=== PATIENT | female | born 1970 | race Caucasian/White ===

== ENCOUNTER 2017-04-21 18:55 | Emergency (ER) | payer BC ==
[2017-04-21 19:13] VITALS: BP 163/72
--- NOTE | 2017-04-21 20:10 | EDM.PDOC ---
ED HPI GENERAL MEDICAL PROBLEM - General Chief Complaint: Headache Stated Complaint: MIGRAINE Time Seen by Provider: 04/21/17 19:45 Source of Information: Reports: Patient History Limitations: Reports: No Limitations - History of Present Illness INITIAL COMMENTS - FREE TEXT/NARRATIVE: c/o headache last 2 nights with intercourse relieved with ibuprofen. No headache at present. Described headache to start in back of neck and radiate to top of head. Admits anxiety about health. Was seen in [facility] last denisse for same and given Ativan for anxiety and Rx for Lexapro. Has not started. Wanting CT of head. Has no weakness or blurring of vision. BP up last night. Duration: Resolved Prior to Arrival - Related Data Allergies Allergy/AdvReac Type Severity Reaction Status Date / Time codeine Allergy Hallucinati Verified 04/21/17 19:07 ons Home Meds: Home Meds . [No Known Home Meds] 04/21/17 [History] Past Medical History - Past Health History Medical/Surgical History: Denies Medical/Surgical History Psychiatric History: Reports: Anxiety - Past Surgical History Musculoskeletal Surgical History: Reports: Other (See Below) Other Musculoskeletal Surgeries/Procedures:: right ankle surgery Social & Family History - Family History Family Medical History: Noncontributory - Tobacco Use Smoking Status *Q: Never Smoker Second Hand Smoke Exposure: No - Caffeine Use Caffeine Use: Reports: Coffee - Recreational Drug Use Recreational Drug Use: No ED ROS GENERAL - Review of Systems Review Of Systems: See Below Constitutional: Reports: No Symptoms HEENT: Reports: No Symptoms Respiratory: Reports: No Symptoms Cardiovascular: Reports: No Symptoms GI/Abdominal: Reports: No Symptoms : Reports: No Symptoms Musculoskeletal: Reports: No Symptoms Neurological: Reports: Headache (starts at back adiates to top. ). Denies: Seizure, Syncope, Tingling - Physical Exam Exam: See Below Exam Limited By: No Limitations General Appearance: Alert, No Apparent Distress, Anxious Eye Exam: Bilateral Eye: EOMI, PERRL Ears: Normal External Exam, Normal TMs Nose: Normal Inspection, Clear Rhinorrhea Throat/Mouth: Normal Inspection Head Exam: Atraumatic, Normocephalic. No: Scalp Swelling Neck: Normal Inspection, Full Range of Motion. No: Lymphadenopathy (L), Lymphadenopathy (R) Respiratory/Chest: No Respiratory Distress, Lungs Clear Cardiovascular: Normal Peripheral Pulses, Regular Rate, Rhythm GI/Abdominal: Normal Bowel Sounds, Soft, Non-Tender Neuro Exam (Abbreviated): Alert, Oriented, CN II-XII Intact, Normal Cognition, No Motor/Sensory Deficits Back Exam: Normal Inspection Extremities: Normal Inspection, Normal Range of Motion, No Pedal Edema Psychiatric: Normal Affect Skin Exam: Warm, Dry, Intact, Normal Color, No Rash Course - Vital Signs Last Recorded V/S: Last Vital Signs Temp 98.4 F 04/21/17 19:08 Pulse 62 04/21/17 19:08 Resp 16 04/21/17 19:08 BP 163/72 H 04/21/17 19:08 Pulse Ox 100 04/21/17 19:08 Departure - Departure Time of Disposition: 20:03 Disposition: Home, Self-Care 01 Condition: Good Clinical Impression: Tension headache, Anxiety about health - Discharge Information Instructions: Tension Headache, [id number] Forms: ED Department Discharge Additional Instructions: alternate tylenol and ibuprofen for headache increase fluid intake follow up in clinic next week with primary care provider
== END 2017-04-21 20:06 | disposition home or self-care (01) ==
LOC: DL.ED 18:55
DX: G44.209 Tension-type headache, unspecified, not intractable (principal); F41.9 Anxiety disorder, unspecified
CPT/HCPCS: 99283

== ENCOUNTER 2017-04-28 19:57 | Emergency (ER) | payer BC ==
[2017-04-28 20:30] VITALS: BP 167/83
--- NOTE | 2017-04-28 21:42 | EDM.PDOC ---
ED HPI GENERAL MEDICAL PROBLEM - General Chief Complaint: Headache Stated Complaint: HAD CT SCAN DONE W/OUT CONTRAST,NEEDS 1 WITH Time Seen by Provider: 04/28/17 21:36 Source of Information: Reports: Patient History Limitations: Reports: No Limitations - History of Present Illness INITIAL COMMENTS - FREE TEXT/NARRATIVE: pt states has h/o FITCH and had non-contrast head CAT today which was negative but pt is concerned with possible bleeding in her head and called her MD in [place] who rec' contrast study. explained to pt this facility doesn't do head contrast without radiologist present and there isn't one on nights and weekend. but I will call [facility] which can do contrast head CAT. then pt states will go there tomorrow after work to have scan done and wanted me to call ahead for the appointment. explained to pt if her concern is a head bleed then she should go tonight. pt got quite unhappy stating she is not used to [facility] lack of services unlike [place] where she is from. pt then got up and left without further eval' Left Headache Pain Score (Numeric/FACES): 4 - Related Data Allergies Allergy/AdvReac Type Severity Reaction Status Date / Time codeine Allergy Hallucinati Verified 04/28/17 20:30 ons Home Meds: Home Meds ALPRAZolam [Alprazolam] 0.5 mg PO DAILY 04/28/17 [History] Escitalopram Oxalate [Escitalopram Oxalate] 10 mg PO DAILY 04/28/17 [History] Orphenadrine [Norflex] 100 mg PO BID PRN 04/28/17 [History] Past Medical History - Past Health History Medical/Surgical History: Denies Medical/Surgical History Psychiatric History: Reports: Anxiety - Infectious Disease History Infectious Disease History: Reports: Chicken Pox - Past Surgical History Musculoskeletal Surgical History: Reports: Other (See Below) Other Musculoskeletal Surgeries/Procedures:: right ankle surgery Social & Family History - Family History Family Medical History: Noncontributory - Tobacco Use Smoking Status *Q: Never Smoker Second Hand Smoke Exposure: No - Caffeine Use Caffeine Use: Reports: Coffee - Recreational Drug Use Recreational Drug Use: No ED ROS GENERAL - Review of Systems Review Of Systems: ROS reveals no pertinent complaints other than HPI. - Physical Exam Exam: See Below Exam Limited By: No Limitations General Appearance: Alert, WD/WN, No Apparent Distress, Other (somewhat distraught) Eye Exam: Bilateral Eye: PERRL (pupils ess ER @ 4mm) Ears: Hearing Grossly Normal Throat/Mouth: Normal Voice, No Airway Compromise Head Exam: Atraumatic Neck: Non-Tender, Full Range of Motion Respiratory/Chest: No Respiratory Distress Cardiovascular: Normal Peripheral Pulses Neuro Exam (Abbreviated): Alert, Oriented, Normal Cognition, Normal Gait, No Motor/Sensory Deficits Psychiatric: Other (distraught) Skin Exam: Normal Color Course - Vital Signs Last Recorded V/S: Last Vital Signs Temp 37.7 C 04/28/17 20:25 Pulse 68 04/28/17 20:25 Resp 18 04/28/17 20:25 BP 167/83 H 04/28/17 20:25 Pulse Ox 97 04/28/17 20:25 Departure - Departure Time of Disposition: 21:44 Disposition: Home, Self-Care 01 Condition: Good Clinical Impression: Headache Qualifiers: Headache type: unspecified Headache chronicity pattern: unspecified pattern Intractability: not intractable Qualified Code(s): R51 - Headache - Discharge Information Forms: ED Department Discharge
== END 2017-04-28 21:35 | disposition home or self-care (01) ==
LOC: DL.ED 19:57
DX: G44.82 Headache associated with sexual activity (principal); Z88.5 Allergy status to narcotic agent; Z79.899 Other long term (current) drug therapy
CPT/HCPCS: 36415; 70450; 80053; 83540; 83550; 85025; 99283

== ENCOUNTER 2021-07-22 05:48 | Emergency (ER) | payer BC ==
[2021-07-22 06:08] VITALS: BP 155/108; PULSE 84
--- NOTE | 2021-07-22 06:53 | EDM.PDOC ---
<Sukhjinder Dawkins - Last Filed: 07/22/21 08:18> ED HPI GENERAL MEDICAL PROBLEM - General Chief Complaint: Gastrointestinal Problem Stated Complaint: PT DID NOT WANT TO SAY Time Seen by Provider: 07/22/21 06:20 - Related Data Allergies Allergy/AdvReac Type Severity Reaction Status Date / Time codeine Allergy Hallucinati Verified 04/28/17 20:30 ons Home Meds: Home Meds ALPRAZolam [Alprazolam] 0.5 mg PO DAILY 04/28/17 [History] Escitalopram Oxalate 10 mg PO DAILY 04/28/17 [History] Orphenadrine [Norflex] 100 mg PO BID PRN 04/28/17 [History] Course - Re-Assessments/Exams Free Text/Narrative Re-Assessment/Exam: 07/22/21 07:31 I assumed care of the pt from Arabella Shipley [employer] SHELLER OPERATOR at 0700HR shift change with lab results pending. Pt is resting and comfortable. No changes to HPI/CC, Hx, ROS, or exam as documented by the CORN SHELLER OPERATOR for this encounter. Departure - Departure Time of Disposition: 08:18 Disposition: Home, Self-Care 01 Condition: Good Clinical Impression: Acute anal fissure, Rectal bleeding, Chronic constipation - Discharge Information *PRESCRIPTION DRUG MONITORING PROGRAM REVIEWED*: No *COPY OF PRESCRIPTION DRUG MONITORING REPORT IN PATIENT RELL: No Instructions: Rectal Bleeding, Chronic Constipation, Anal Fissure, Adult Forms: ED Department Discharge Additional Instructions: Use Citrucel once or twice daily. Follow directions on container. Use Dibucaine or Nupercainal as needed for anal pain. Drink plenty of water. High fiber diet with plenty fresh fruits and vegetables. Follow up in clinic next week for recheck and consideration of colonoscopy. <Arabella Shipley Roslainda - Last Filed: 07/23/21 01:04> ED HPI GENERAL MEDICAL PROBLEM - General Source of Information: Reports: Patient, RN, RN Notes Reviewed History Limitations: Reports: No Limitations - History of Present Illness INITIAL COMMENTS - FREE TEXT/NARRATIVE: Dary is a 51 y/o female who presents to the ED via personal vehicle with complaints of rectal bleeding, diarrhea, and abdominal cramping. The patient reports her symptoms began yesterday following a 3-day long bout of constipation. She notes stinging pain to the rectum with bowel movements since her first post-constipation stool. She did not notice blood to the stool until she had experienced several bowel movements yesterday. Additionally, the patient notes a cough, sore throat, chills, and muscle aches that started one week ago. The patient reports a history of an active COVID infection in 2020; she is not currently vaccinated for COVID. She denies fever, vision changes, sinus pressure/pain, chest pain/pain, palpitations, shortness of breath, nausea, vomiting, dysuria, or hematuria. The patient attest to a history of constipation with anal fissures. She denies tobacco, alcohol, or recreational drug use. Middle Abdomen Pain Score (Numeric/FACES): 6 Past Medical History - Past Health History Medical/Surgical History: Denies Medical/Surgical History Psychiatric History: Reports: Anxiety - Infectious Disease History Infectious Disease History: Reports: Chicken Pox - Past Surgical History Musculoskeletal Surgical History: Reports: Other (See Below) Other Musculoskeletal Surgeries/Procedures:: right ankle surgery Social & Family History - Family History Family Medical History: No Pertinent Family History - Tobacco Use Tobacco Use Status *Q: Never Tobacco User Second Hand Smoke Exposure: No - Caffeine Use Caffeine Use: Reports: Coffee ED ROS GENERAL - Review of Systems Review Of Systems: Comprehensive ROS is negative, except as noted in HPI. ED EXAM, GI/ABD - Physical Exam Exam: See Below Exam Limited By: No Limitations General Appearance: Alert, WD/WN, No Apparent Distress. No: Active Emesis Eyes: Bilateral: Normal Appearance, EOMI Ears: Normal External Exam, Hearing Grossly Normal Nose: Normal Inspection, Normal Mucosa, No Blood Throat/Mouth: Normal Inspection, Normal Oropharynx, Normal Voice, No Airway Compromise Head: Atraumatic, Normocephalic Neck: Normal Inspection, Supple, Non-Tender, Full Range of Motion. No: Lymphadenopathy (L), Lymphadenopathy (R) Respiratory/Chest: No Respiratory Distress, Lungs Clear, Normal Breath Sounds, No Accessory Muscle Use, Chest Non-Tender. No: Crackles, Rales, Rhonchi, Wheezing, Stridor Cardiovascular: Normal Peripheral Pulses, Regular Rate, Rhythm, No Gallop, No Murmur, No Rub GI/Abdominal Exam: Normal Bowel Sounds, Soft, No Distention, No Abnormal Bruit, No Mass, Pelvis Stable, Tender (To palpation of bilateral lower quadrants R>L) (Female) Exam: Deferred Rectal (Female) Exam: Normal Rectal Tone, Bloody Stool, Rectal Fissure (to 12 o'clock ), Tenderness Back Exam: Normal Inspection, Full Range of Motion Extremities: Normal Inspection, Normal Range of Motion, Normal Capillary Refill Neurological: Alert, Oriented, CN II-XII Intact, Normal Cognition, Normal Gait, No Motor/Sensory Deficits Psychiatric: Normal Affect, Normal Mood Skin Exam: Warm, Dry, Intact, Normal Color, No Rash. No: Cyanosis, Jaundice, Mottled, Pallor Course - Vital Signs Last Recorded V/S: Last Vital Signs Temp 97.3 F 07/22/21 06:05 Pulse 84 07/22/21 06:05 Resp 18 07/22/21 06:05 BP 155/108 H 07/22/21 06:05 Pulse Ox 97 07/22/21 06:05 - Orders/Labs/Meds Labs: Laboratory Tests 07/22/21 07/22/21 07/22/21 Range/Units 06:11 06:45 07:11 WBC 7.4 (5.0-10.0) 10^3/uL RBC 4.76 (4.2-5.4) 10^6/uL Hgb 13.4 D (12.0-16.0) g/dL Hct 40.2 (37.0-47.0) % MCV 84.5 (80-100) fL MCH 28.2 (27.0-34.0) pg MCHC 33.3 (33.0-35.0) g/dL Plt Count 205 (150-450) 10^3/uL Neut % (Auto) 81.5 H (42.2-75.2) % Lymph % (Auto) 8.7 L (20.5-50.1) % [place] % (Auto) 7.9 (2-8) % Eos % (Auto) 1.6 (1.0-3.0) % Baso % (Auto) 0.3 (0.0-1.0) % Sodium (136-145) mmol/L Potassium (3.5-5.1) mmol/L Chloride (98-107) mmol/L Carbon Dioxide (21-32) mmol/L Anion Gap (7-13) mEq/L BUN (7-18) mg/dL Creatinine (0.55-1.02) mg/dL Est Cr Clr Drug Dosing mL/min Estimated GFR (MDRD) BUN/Creatinine Ratio (No establ ref range) Glucose (70-99) mg/dL Lactic Acid (0.4-2.0) mmol/L Calcium (8.5-10.1) mg/dL Total Bilirubin (0.2-1.0) mg/dL AST (15-37) U/L ALT (14-59) U/L Alkaline Phosphatase (46-116) U/L C-Reactive Protein (0.0-0.9) mg/dL Total Protein (6.4-8.2) g/dL Albumin (3.4-5.0) g/dL Globulin Albumin/Globulin Ratio Amylase (25-115) U/L Lipase (73-393) U/L Urine Color Yellow (YELLOW) Urine Appearance Slightly cloudy (CLEAR) Urine pH 5.5 (5.0-9.0) Ur Specific [place] >= 1.030 (1.005-1.030) Urine Protein Negative (NEGATIVE) Urine Glucose (UA) Negative (NEGATIVE) Urine Ketones Negative (NEGATIVE) Urine Occult Blood Trace-intact H (NEGATIVE) Urine Nitrite Negative (NEGATIVE) Urine Bilirubin Negative (NEGATIVE) Urine Urobilinogen 0.2 (0.2-1.0) mg/dL Ur Leukocyte Esterase Negative (NEGATIVE) Urine RBC Not seen (0-5) /HPF Urine WBC 0-5 (0-5/HPF) /HPF Ur Epithelial Cells Rare (NOT SEEN) /HPF Urine Bacteria Rare (0-FEW/HPF) /HPF Urine Mucus Rare (NOT SEEN) /LPF SARS-CoV-2 RNA (CHENCHO) Negative (NEGATIVE) 07/22/21 07/22/21 Range/Units 07:11 07:11 WBC (5.0-10.0) 10^3/uL RBC (4.2-5.4) 10^6/uL Hgb (12.0-16.0) g/dL Hct (37.0-47.0) % MCV (80-100) fL MCH (27.0-34.0) pg MCHC (33.0-35.0) g/dL Plt Count (150-450) 10^3/uL Neut % (Auto) (42.2-75.2) % Lymph % (Auto) (20.5-50.1) % [place] % (Auto) (2-8) % Eos % (Auto) (1.0-3.0) % Baso % (Auto) (0.0-1.0) % Sodium 140 (136-145) mmol/L Potassium 3.8 (3.5-5.1) mmol/L Chloride 104 (98-107) mmol/L Carbon Dioxide 25 (21-32) mmol/L Anion Gap 14.8 H (7-13) mEq/L BUN 12 (7-18) mg/dL Creatinine 0.59 (0.55-1.02) mg/dL Est Cr Clr Drug Dosing 115.07 mL/min Estimated GFR (MDRD) > 60 BUN/Creatinine Ratio 20.3 (No establ ref range) Glucose 109 H (70-99) mg/dL Lactic Acid 0.8 (0.4-2.0) mmol/L Calcium 8.5 (8.5-10.1) mg/dL Total Bilirubin 0.7 (0.2-1.0) mg/dL AST 23 (15-37) U/L ALT 36 (14-59) U/L Alkaline Phosphatase 102 (46-116) U/L C-Reactive Protein 0.9 (0.0-0.9) mg/dL Total Protein 7.1 (6.4-8.2) g/dL Albumin 3.3 L (3.4-5.0) g/dL Globulin 3.8 Albumin/Globulin Ratio 0.87 Amylase 61 (25-115) U/L Lipase 74 (73-393) U/L Urine Color (YELLOW) Urine Appearance (CLEAR) Urine pH (5.0-9.0) Ur Specific [place] (1.005-1.030) Urine Protein (NEGATIVE) Urine Glucose (UA) (NEGATIVE) Urine Ketones (NEGATIVE) Urine Occult Blood (NEGATIVE) Urine Nitrite (NEGATIVE) Urine Bilirubin (NEGATIVE) Urine Urobilinogen (0.2-1.0) mg/dL Ur Leukocyte Esterase (NEGATIVE) Urine RBC (0-5) /HPF Urine WBC (0-5/HPF) /HPF Ur Epithelial Cells (NOT SEEN) /HPF Urine Bacteria (0-FEW/HPF) /HPF Urine Mucus (NOT SEEN) /LPF SARS-CoV-2 RNA (CHENCHO) (NEGATIVE) Sepsis Event Note (ED) - Evaluation Sepsis Screening Result: No Definite Risk
[2021-07-22 07:41] LABS: ANION GAP 14.8 mEq/L (7-13); CHLORIDE,CL 104 mmol/L (98-107); SODIUM,NA 140 mmol/L (136-145)
== END 2021-07-22 08:31 | disposition home or self-care (01) ==
LOC: DL.ED 05:48
DX: K62.5 Hemorrhage of anus and rectum (principal); K59.09 Other constipation; K60.2 Anal fissure, unspecified; Z88.5 Allergy status to narcotic agent; Z20.822 Contact with and (suspected) exposure to COVID-19
CPT/HCPCS: 36415; 80053; 81001; 82150; 83605; 83690; 85025; 86140; 99284; U0002